=== PATIENT | male | born 1995 | race Caucasian/White ===

== ENCOUNTER 2022-05-29 08:15 | Emergency (ER) | payer SELFPAY ==
--- NOTE | 2022-05-29 08:16 | ED.URI ---
HPI - URI/Sore Throat General Chief Complaint: Upper Respiratory Infection Stated Complaint: uri Time Seen by Provider: 05/29/22 08:16 Source: patient Mode of arrival: ambulatory Limitations: no limitations History of Present Illness HPI Narrative: Mr. Melton is a 26-year-old male patient presenting to the clinic today with complaints of possible upper respiratory infection. He reports he has had nasal congestion, cough, chest congestion, and green nasal drainage that have been ongoing for 7 days. States that he is done several COVID test and they have all been negative. He currently has a temperature of 38.6 ? Celsius. He denies any known exposure to anyone with flu, strep, or COVID. MD elicited complaint: fever, cough and nasal congestion Related Data Allergies Allergy/AdvReac Type Severity Reaction Status Date / Time No Known Allergies Allergy Mild Verified 05/29/22 08:34 Review of Systems Review of Systems: Pertinent positives per HPI. Patient denies any fever, chills, rash, headache, visual changes, dizziness, cough, shortness of breath, chest pain, palpitations, nausea, vomiting, diarrhea, constipation, abdominal pain, or any urinary issues. [facility] Past Medical History Medical History Morbid obesity with BMI of 40.0-44.9, adult Family History Family History Grandparent Family history of malignant neoplasm of urinary bladder Family history of type 2 diabetes mellitus Father Family history of type 2 diabetes mellitus Other Hypertension Social History Social History Smoking status: Never smoker Alcohol intake: current Substance use: never Substance use type: does not use Gender identity (if verbalized by the patient): Male Comments At the time of my signature, I reviewed and agree with the nursing past medical, surgical, social, and family history. There is no relevant family history pertinent to the patient complaint. Exam Narrative: General: Well-developed, obese, in no apparent distress Head: Normocephalic, atraumatic Eyes: Pupils equally round and reactive to light bilaterally, EOM intact, sclera and conjunctive clear, no discharge, lids normal Ears: TMs intact and clear, ear canals clear, no drainage, grossly hearing normal. Nose: Nares patent, clear nasal discharge, moderate inflammation, no sinus tenderness. Mouth: Oral pharynx without lesions or masses, good dentition, MMM. Postnasal drip Neck: Supple, trachea midline, no enlargement of anterior or posterior cervical nodes, no thyroid masses or goiter palpable. Cardio: Regular rate and rhythm, s1 and s2 normal, no murmur appreciated. Resp: Clear to auscultation bilaterally, no rhonchi, rales, wheezing or rubs Course Course Emergency Course: Portions of this record may have been created with voice recognition software. Level of Care: Express Care Visit Vital Signs Vital signs: Vital signs reviewed MDM - URI/Sore Throat MDM Narrative Medical decision making narrative: At the time of visit patient is resting comfortably on the exam table. Patient has had symptoms for approximately 7 days but does not yet meet criteria for sinusitis treatment. Will prescribe a round of prednisone to help with the congestion and pressure. Supportive measures were discussed with the patient he voiced understanding and agrees to the treatment plan. Differential Diagnosis Differential diagnosis: Likely upper respiratory infection, otitis media, sinusitis, viral infection, bronchitis, influenza and pharyngitis Discharge Plan Discharge Clinical Impression: Upper respiratory infection Qualifiers: URI type: unspecified viral URI Qualified Code(s): J06.9 - Acute upper respiratory infection, unspecified Patient Disposition: Home, Self-Care Condition: Stable
[2022-05-29 08:29] VITALS: BP 139/90; PULSE 101; RESP 16; TEMP 38.6; O2SAT 100
== END 2022-05-29 08:38 | disposition home or self-care (01) ==
LOC: EXPCOLL 08:19
PROVIDERS: Emergency Provider Nurse Practitioner Family
DX: J06.9 Acute upper respiratory infection, unspecified (principal); E66.01 Morbid (severe) obesity due to excess calories; Z68.41 Body mass index [BMI] 40.0-44.9, adult; I10 Essential (primary) hypertension
CPT/HCPCS: 99213; G0463

== ENCOUNTER 2024-05-08 18:52 | Emergency (ER) | payer SELFPAY ==
[2024-05-08 19:02] VITALS: BP 122/64; PULSE 99; RESP 20; TEMP 37.1; O2SAT 100
--- NOTE | 2024-05-08 19:23 | ED.EAR ---
HPI - Ear Problem General Chief complaint: Ear Stated complaint: right ear pressure Time Seen by Provider: 05/08/24 19:11 Source: patient and RN notes reviewed Mode of arrival: ambulatory Limitations: no limitations History of Present Illness HPI Narrative: Patient presents today with right ear pain x3 days. He has been frequently swimming. He does report some decreased hearing and some yellow drainage. He has tried some swimmer's ear drops and Aleve without much relief. No URI symptoms Related Data Allergies Allergy/AdvReac Type Severity Reaction Status Date / Time No Known Allergies Allergy Mild Verified 05/08/24 19:17 Review of Systems Review of Systems: CONSTITUTIONAL: Denies body aches, fever, chills, or sweats. EYES: Denies visual changes, redness, or discharge. ENT: Denies rhinorrhea, congestion, sore throat. + right ear pain and drainage CARDIOVASCULAR: Denies chest pain, palpitations, or edema. RESPIRATORY: Denies cough or dyspnea. GASTROINTESTINAL: Denies abdominal pain, nausea, vomiting, or diarrhea. GENITOURINARY: Denies dysuria or hematuria. SKIN: Denies rash, itching, or wounds. MUSCULOSKELETAL: Denies back pain, joint pain, or myalgia. NEUROLOGIC: Denies headache, numbness, tingling, or weakness. PSYCH: Denies depression or anxiety. [facility] Past Medical History Medical History Morbid obesity with BMI of 40.0-44.9, adult Family History Family History Grandparent Family history of malignant neoplasm of urinary bladder Family history of type 2 diabetes mellitus Father Family history of type 2 diabetes mellitus Other Hypertension Social History Social History Smoking status: Never smoker Alcohol intake: current Substance use: never Substance use type: does not use Living arrangements: with family Occupation/Education: occupation Gender identity (if verbalized by the patient): Male Comments At time of signature, I have reviewed and agree with nursing past medical, surgical, social and family history unless otherwise noted. Please see nursing chart for further information. There is no relevant family history pertinent to the presenting complaint Exam Narrative: GENERAL: Well-appearing, well-nourished, and in no acute distress. HEAD: Normocephalic, atraumatic. EYES: EOMI. No redness or drainage. Conjunctivae normal. ENT: Mucous membranes pink and moist. Left TM and canal normal. Right ear: Mild movement and tragal tenderness. Ear canal is erythematous with mild edema. Ear canal is moist with some chunky white/yellow drainage. NECK: Normal AROM. CHEST: No respiratory distress. EXTREMITIES: Normal range of motion. No edema. SKIN: Warm, dry, no rash. Capillary refill normal. Normal skin turgor. NEURO: No focal deficits. Alert and oriented x3. Gait steady. PSYCH: Normal affect. No signs of depression or anxiety. Course Course Level of Care: Express Care Visit Vital Signs Vital signs: Vital Signs Temperature 98.8 F 05/08/24 19:02 Pulse Rate 99 05/08/24 19:02 Respiratory Rate 20 05/08/24 19:02 Blood Pressure 122/64 05/08/24 19:02 Pulse Oximetry 100 05/08/24 19:02 Oxygen Delivery Room Air 05/08/24 19:02 Temperature 98.8 F 05/08/24 19:02 Pulse Rate 99 05/08/24 19:02 Respiratory Rate 20 05/08/24 19:02 Blood Pressure 122/64 05/08/24 19:02 Pulse Oximetry 100 05/08/24 19:02 Oxygen Delivery Room Air 05/08/24 19:02 Reviewed Medical Decision Making MDM Narrative Medical decision making narrative: Patient's exam is consistent with otitis externa. Prescription for Cortisporin sent to pharmacy. Anticipatory guidance given. Differential Diagnosis Differential Diagnosis: Otitis media, otitis externa, ruptured TM, serous otitis, cerumen
== END 2024-05-08 19:28 | disposition home or self-care (01) ==
PROVIDERS: Emergency Provider Nurse Practitioner
DX: H60.501 Unspecified acute noninfective otitis externa, right ear (principal); E66.01 Morbid (severe) obesity due to excess calories; Z68.41 Body mass index [BMI] 40.0-44.9, adult
CPT/HCPCS: 99213; G0463